=== PATIENT | male | born 1945 | race Caucasian/White ===

== ENCOUNTER → 2020-04-04 | Outpatient (CLI) | payer MEDICARE, SELFPAY | LOC: KOH-I 14:06 | DX: U07.1 COVID-19 (principal) | CPT/HCPCS: 71046 ==

== ENCOUNTER → 2021-08-02 | Outpatient (CLI) | payer MEDICARE | LOC: KOH-I 15:45 | DX: R06.02 Shortness of breath (principal) | CPT/HCPCS: 71046 ==